=== PATIENT | male | born 1965 | race Two or more races ===

== ENCOUNTER 2018-02-08 14:32 | Emergency (ER) | payer MEDICAID ==
[~2018-02-08] VITALS: Ht 170.2 cm; Wt 74.4 kg
[2018-02-08] MEDS ORDERED: NKM (14:36)
--- NOTE | 2018-02-08 14:49 | Emergency Room Report ---
History of Present Illness General Chief Complaint: Nosebleed Source: Patient Present Illness HPI Patient is a 52-year-old male who is presenting with epistaxis for the last couple of hours. Patient denies any trauma, denies blood thinners. He states he had a nosebleed approximately 3 days ago that stopped on its own however today's was not stopping. Allergies: Coded Allergies: No Known Allergies (Unverified , 02/08/18) Patient History Past Medical History: none Past Surgical History: none Pertinent Family History: none Social History: Denies: smoking, alcohol use, drug use Nursing Documentation-[facility] Past Medical History: No Stated History Review of Systems Constitutional: Denies: no symptoms, see HPI, chills, sweats, fever, malaise, weakness, other ENT: Reports: see HPI Respiratory: Denies: no symptoms, see HPI, cough, orthopnea, shortness of breath, stridor, wheezing, DOMINIQUE, sputum, other Cardiovascular: Denies: no symptoms, see HPI, chest pain, edema, palpitations, syncope, PND, other Gastrointestinal: Denies: no symptoms, see HPI, abdominal pain, constipation, diarrhea, nausea, vomiting, melena, hematemesis, other Skin: Denies: no symptoms, see HPI, rash, change in color, change in hair/nails , dryness, lesions, other Physical Exam Vital Signs Date Time Temp Pulse Resp B/P (MAP) Pulse Ox O2 Delivery O2 Flow Rate FiO2 02/08/18 14:34 97.0 92 20 151/95 98 Room Air 97.0 Sp02 EP Interpretation: reviewed, normal General Appearance: no apparent distress, alert, GCS 15, non-toxic Eyes: bilateral eye normal inspection, bilateral eye PERRL ENT: normal voice, uvula midline, other - right Anterior epistaxis with no obvious source. There is no active bleeding in the posterior oropharynx to suggest posterior bleed. Neck: full range of motion, supple/symm/no masses Respiratory: chest non-tender, lungs clear, normal breath sounds, speaking full sentences Skin: normal color, no rash, warm/dry, well hydrated Procedures Additional Procedure Procedure Narrative On examination patient's right naris shows evidence of old epistaxis although no active bleeding. The naris was prepped with Pontocaine and epinephrine after copious suctioning. Upon examination after Pontocaine and appendectomy for 5 minutes there was no evidence of active bleeding. The patient was monitored in the department for another 10 minutes with no evidence of bleeding. Therefore no packing was required and no car cauterization was required Medical Decision Making Diagnostic Impression: Primary Impression: Epistaxis ER Course Patient's epistaxis resolved without requiring either packing or cauterization. Patient's blood pressure was initially noted to be slightly elevated however this came down with time and no specific treatment. Patient's been advised to follow-up on his blood pressure. He has also been advised to lubricate the naris copiously for the next several days to prevent recurrence. Patient will return to the emergency department should epistaxis recur. Last Vital Signs Date Time Temp Pulse Resp B/P (MAP) Pulse Ox O2 Delivery O2 Flow Rate FiO2 02/08/18 14:34 97.0 92 20 151/95 98 Room Air 97.0 Status: improved Disposition: HOME, SELF-CARE Condition: Improved Patient Instructions: Nosebleed, [id number] Srini Mitchell MD Feb 08, 2018 14:49
[2018-02-08] MEDS ORDERED: TETRACAINE 1% INJ ONE (15:00)
[2018-02-08] MEDS ORDERED: EPINEPHrine 1mg/1ml Amp 1 MG in D5W 249 ML IV SCH (15:00)
[2018-02-08] MEDS ORDERED: Tetracaine 0.5% Opth 4ml Soln ONE (15:11)
[2018-02-08 16:21] VITALS: BP 151/95
== END 2018-02-08 16:23 | disposition home or self-care (01) ==
LOC: EMR 14:56
DX: R04.0 Epistaxis (principal)
CPT/HCPCS: 99283; J0171

== ENCOUNTER 2019-04-20 02:45 | Emergency (ER) | payer MEDICAID ==
[~2019-04-20] VITALS: Ht 175.3 cm; Wt 74.8 kg
[~2019-04-20 02:45] MED LIST: AMOXICILLIN500 MG ORAL; MECLIZINE HCL25 MG ORAL; NKM
[2019-04-20] MEDS ORDERED: Augmentin 875mg Tab ORAL ONE (03:15)
--- NOTE | 2019-04-20 03:20 | NUR ---
Pt walked in c/o RT ear pain since 04/16. Pt denies trauma. Pt stated 04/06 thobbing pain. Pt denies being sick recently.
[2019-04-20 03:21] VITALS: BP 138/87
[2019-04-20] MEDS ORDERED: AUGMENTIN 875-1 EAC1 ORAL (03:34)
[2019-04-20] MEDS ORDERED: IBUPROFEN600 MG ORAL (03:34)
[2019-04-20 03:35] VITALS: BP 138/87
--- NOTE | 2019-04-20 03:35 | NUR ---
ER DISCHARGE NOTE: Patient is cleared to be discharged per ERMD, pt is aox4, on room air, with stable vital signs. pt was given dc and prescription instructions, pt was able to verbalize understanding, pt id band removed. pt is able to ambulate with steady gait. pt took all belongings.
--- NOTE | 2019-04-20 06:26 | Emergency Room Report ---
History of Present Illness General Chief Complaint: Earache Source: Patient Present Illness HPI Patient 53-year-old male presented after increased earache. Patient had onset of pain approximately 4 days prior. He reports having decreased hearing to the right ear. Gradual onset. He denies any fever. He reports having some slight leakage of fluid. He denies recent trauma. He denies recent swimming. He had not been vomiting. He denies any dizziness. Denies any ringing in his ears. Allergies: Coded Allergies: No Known Allergies (Unverified , 02/08/18) Patient History Past Medical History: see triage record Reviewed Nursing Documentation: PMH: Agreed; PSxH: Agreed Review of Systems All Other Systems: negative except mentioned in HPI Physical Exam Vital Signs Date Time Temp Pulse Resp B/P (MAP) Pulse Ox O2 Delivery O2 Flow Rate FiO2 04/20/19 02:51 98.1 87 16 138/87 (104) 97 Room Air Sp02 EP Interpretation: reviewed, normal General Appearance: normal inspection, well appearing, no apparent distress, alert, GCS 15, non-toxic Head: atraumatic ENT: normal ENT inspection, normal voice, other - Right-sided canal swelling with TM with slight leakage of fluid, left TM normal Neck: normal inspection, full range of motion, supple, no bony tend Respiratory: normal inspection, lungs clear, normal breath sounds, no respiratory distress, no retraction, no wheezing Cardiovascular #1: regular rate, rhythm, no edema Gastrointestinal: normal inspection, normal bowel sounds, non tender, soft, no guarding, no hernia Genitourinary: no CVA tenderness Musculoskeletal: normal inspection, back normal, normal range of motion Neurologic: normal inspection, alert, responsive, speech normal Psychiatric: normal inspection, judgement/insight normal, mood/affect normal Medical Decision Making Diagnostic Impression: Primary Impression: Otitis media, acute with perforation of eardrum ER Course Patient presented for ear pain. Differential diagnosis included was not limited to otitis media, malignant otitis externa, foreign body, cellulitis, mastoiditis, carotid dissection, myocardial infarction among others. Patient was noted to have what appears to be a right otitis media with perforation. Canal does appear to be somewhat swollen. Patient was given prescription for Augmentin. Patient was advised to follow up with primary care physician for recheck. Patient to return if worse. Last Vital Signs Date Time Temp Pulse Resp B/P (MAP) Pulse Ox O2 Delivery O2 Flow Rate FiO2 04/20/19 03:35 98.1 72 16 138/87 97 Room Air Disposition: HOME, SELF-CARE Scripts Ibuprofen* (MOTRIN*) 600 Mg Tablet 600 MG ORAL Q8H PRN for For Pain, #30 TAB 0 Refills Prov: Ramiro Aguirre MD 04/20/19 Amoxicillin/Potassium Clav 875-125* (AUGMENTIN 875-125 TABLET*) 1 Each Tablet 1 TAB ORAL TWICE A DAY, #14 TAB Prov: Ramiro Aguirre MD 04/20/19 Referrals: NON PHYSICIAN (PCP) Patient Instructions: Otitis Media, Adult Ramiro Aguirre MD Apr 20, 2019 06:26
== END 2019-04-20 03:35 | disposition home or self-care (01) ==
LOC: EMR 03:30
DX: H66.91 Otitis media, unspecified, right ear (principal); H72.91 Unspecified perforation of tympanic membrane, right ear
CPT/HCPCS: 99282

== ENCOUNTER 2019-10-24 20:38 | Emergency (ER) | payer MEDICAID ==
[~2019-10-24] VITALS: Ht 172.7 cm; Wt 72.6 kg
[~2019-10-24 20:38] MED LIST changes: +AUGMENTIN 875-1 EAC1 ORAL; +IBUPROFEN600 MG ORAL
--- NOTE | 2019-10-24 20:50 | NUR ---
ED Nurse Note: pt presents to ED c/o epigastric pain onset around 1645 after he ate some fish. pt rates the pain a 02/03 but denies any N/V/D at this time. he is also reporting bilat arm numbness/tingling since the epigastric pain began. pt denies any medical history at this time
[2019-10-24 21:00] VITALS: BP 158/92
[2019-10-24] MEDS ORDERED: PRILOSEC OTC20 MG ORAL (21:10)
--- NOTE | 2019-10-24 21:11 | Emergency Room Report ---
History of Present Illness General Chief Complaint: General Complaint Source: Patient, Medical Record Present Illness HPI This is a 54-year-old male with history of prediabetes and hyperlipidemia. He presents with chief complaint of epigastric tenderness. This occur an hour after eating fish. He felt little nauseous but no vomiting. He then developed numbness to the forearm bilaterally. He felt anxious as well he came in. He denies any chest pain. Denies any vomiting or diarrhea. No exertional component. No radiation. Pain is burning in nature to the epigastric area. Denies any other complaint. Pain is minimal. Allergies: Coded Allergies: No Known Allergies (Unverified , 02/08/18) COVID-19 Screening Contact w/high risk pt: No Recent Travel to affected area: No Experienced COVID-19 symptoms?: No Patient History Past Medical History: see triage record, old chart reviewed Past Surgical History: none Pertinent Family History: none Social History: Denies: smoking Immunizations: other Reviewed Nursing Documentation: PMH: Agreed; PSxH: Agreed Review of Systems Eye: Denies: eye pain, blurred vision ENT: Denies: ear pain, nose congestion, throat swelling Respiratory: Denies: cough, shortness of breath Cardiovascular: Denies: chest pain, palpitations Gastrointestinal: Reports: abdominal pain; Denies: diarrhea, nausea, vomiting Musculoskeletal: Denies: back pain, joint pain Skin: Denies: rash Neurological: Denies: headache, numbness Endocrine: Denies: increased thirst, increased urine Hematologic/Lymphatic: Denies: easy bruising All Other Systems: negative except mentioned in HPI Physical Exam Vital Signs Date Time Temp Pulse Resp B/P (MAP) Pulse Ox O2 Delivery O2 Flow Rate FiO2 10/24/19 20:51 98.8 79 18 158/92 (114) 95 Room Air Vitals with high blood pressure Sp02 EP Interpretation: reviewed, normal General Appearance: well appearing, no apparent distress, alert Head: normocephalic, atraumatic Eyes: bilateral eye PERRL, bilateral eye EOMI ENT: hearing grossly normal, normal pharynx Neck: full range of motion, supple, no meningismus Respiratory: chest non-tender, lungs clear, normal breath sounds Cardiovascular #1: regular rate, rhythm, no murmur Gastrointestinal: normal bowel sounds, non tender, no mass, no organomegaly, no bruit, non-distended Musculoskeletal: back normal, normal range of motion, gait/station normal Psychiatric: anxious Medical Decision Making Diagnostic Impression: Primary Impression: Gastritis Qualified Codes: K29.00 - Acute gastritis without bleeding Additional Impression: Paresthesia of both hands ER Course Patient presents with epigastric pain. This may be gastritis. Could be early food poisoning. He has no other symptoms to indicate anginal equivalent pain. No evidence of ACS, PE, dissection. Also feeling anxious. Patient reassured. I see no need for EKG or laboratory testing. Last Vital Signs Date Time Temp Pulse Resp B/P (MAP) Pulse Ox O2 Delivery O2 Flow Rate FiO2 10/24/19 20:51 98.8 79 18 158/92 (114) 95 Room Air Status: improved Disposition: HOME, SELF-CARE Condition: Stable Scripts Omeprazole Magnesium (PRILOSEC OTC) 20 Mg Tablet. 20 MG ORAL DAILY, #30 TAB Prov: Bharath Hampton MD 10/24/19 Additional Instructions: Follow-up with your doctor in 7 days. Return if symptoms worsen. Bharath Hampton MD Oct 24, 2019 21:11
[2019-10-24 21:15] VITALS: BP 158/92
[2019-10-24] MEDS ORDERED: Mylanta II UD 30ml ORAL ONE (21:15)
--- NOTE | 2019-10-24 21:16 | NUR ---
ER DISCHARGE NOTE: Patient is cleared to be discharged per ERMD, pt is aox4, on room air, with stable vital signs. pt was given dc and prescription instructions, pt was able to verbalize understanding, pt id band removed without complications. pt is able to ambulate with steady gait. pt took all belongings.
== END 2019-10-24 21:24 | disposition home or self-care (01) ==
LOC: EMR 21:24
DX: K29.00 Acute gastritis without bleeding (principal); R20.2 Paresthesia of skin; R73.03 Prediabetes; E78.5 Hyperlipidemia, unspecified
CPT/HCPCS: 99282